=== PATIENT | male | born 1950 | race Caucasian/White ===

== ENCOUNTER 2017-05-15 15:27 | Inpatient (IN) | payer MEDICAID ==
[~2017-05-15] VITALS: Ht 177.8 cm; Wt 77.0 kg
[~2017-05-15 15:27] MED LIST: BACTRIM DS1 TAB PO; GEMFIBROZIL600 MG PO; GLIPIZIDE5 MG PO; LAC PO; LANTUS SOLOS100 U/M1; LEVOFLOXACIN500 M1 PO; METFORMIN1000 M1 PO; NORCO1 TA2 PO; XARELTO10 M1 PO
[2017-05-15 16:38] LABS: RED CELL DISTRIBUTION WIDTH 12.7 % (11.5-14.5)
[2017-05-15 16:46] LABS: BASOPHIL % 0.9 % (0-2); PLATELET COUNT 278 x10^3mcL (130-400)
[2017-05-15 16:57] LABS: ALKALINE PHOSPHATASE 170 U/L (46-116); ALT/SGPT 50 U/L (16-63); AST/SGOT 25 U/L (15-37); BILIRUBIN TOTAL 0.6 mg/dL (0.20-1.00); CALCIUM 8.4 mg/dL (8.5-10.1); CARBON DIOXIDE 30.3 mmol/L (21-32); CHLORIDE SERUM 91 mmol/L (98-107); CREATININE SERUM 0.8 mg/dL (0.7-1.3); GFR1 > 60 mL/min; SODIUM SERUM 128 mmol/L (136-145); TOTAL PROTEIN, SERUM 7.9 g/dL (6.4-8.2)
[2017-05-15 16:57] LABS: microscopic required? NO
[2017-05-15 17:03] LABS: UA SPECIFIC GRAVITY <=1.005 (1.005-1.035); urine erythrocyte NEGATIVE (NEGATIVE)
[2017-05-15 17:04] LABS: ALBUMIN 2.9 g/dL (3.4-5.0); GLUCOSE SERUM 467 mg/dL (74-106)
[2017-05-15 17:27] LABS: AMPHETAMINE QUAL UR NONE DETECTED (NEG <=1000)
[2017-05-15 17:56] LABS: CHOLESTEROL/HDL RATIO 3.8; MAGNESIUM 1.7 mg/dL (1.8-2.4); PHOSPHOROUS 3.7 mg/dL (2.5-4.9)
[2017-05-15 18:05] LABS: T3 TOTAL 1.1 ng/mL
[2017-05-15 18:09] LABS: FREE T4 1.37 ng/dL (0.76-1.46); FREE THYROXINE INDEX 3.8 ug/dL (1.4-4.5); T4(THYROXINE) 12.7 ug/dL (4.7-13.3)
[2017-05-15 19:59] VITALS: BP 141/82
[2017-05-15 20:02] VITALS: Ht 177.8 cm; Wt 77.0 kg
[2017-05-15 21:17] VITALS: BP 138/83
[2017-05-16 05:40] VITALS: BP 135/79
[2017-05-16 06:03] LABS: BASOPHIL % 1.1 % (0-2); PLATELET COUNT 240 x10^3mcL (130-400); RED CELL DISTRIBUTION WIDTH 12.8 % (11.5-14.5)
[2017-05-16 06:11] LABS: CALCIUM 8.1 mg/dL (8.5-10.1); CARBON DIOXIDE 26.4 mmol/L (21-32); CHLORIDE SERUM 101 mmol/L (98-107); CREATININE SERUM 0.7 mg/dL (0.7-1.3); GFR1 > 60 mL/min; GLUCOSE SERUM 121 mg/dL (74-106); MAGNESIUM 1.7 mg/dL (1.8-2.4); PHOSPHOROUS 3.4 mg/dL (2.5-4.9); POTASSIUM SERUM 3.5 mmol/L (3.5-5.1); SODIUM SERUM 134 mmol/L (136-145)
[2017-05-16 10:27] VITALS: BP 133/79
[2017-05-16 14:27] VITALS: BP 154/79
[2017-05-16 17:20] VITALS: BP 110/90
[2017-05-16 20:00] VITALS: BP 109/73
[2017-05-17 05:50] VITALS: BP 126/79
[2017-05-17 06:40] LABS: CALCIUM 8.1 mg/dL (8.5-10.1); CARBON DIOXIDE 24.9 mmol/L (21-32); CHLORIDE SERUM 102 mmol/L (98-107); CREATININE SERUM 0.7 mg/dL (0.7-1.3); GFR1 > 60 mL/min; GLUCOSE SERUM 196 mg/dL (74-106); MAGNESIUM 1.5 mg/dL (1.8-2.4); PHOSPHOROUS 2.9 mg/dL (2.5-4.9); POTASSIUM SERUM 3.5 mmol/L (3.5-5.1); SODIUM SERUM 134 mmol/L (136-145)
[2017-05-17 07:33] LABS: PLATELET COUNT 240 x10^3mcL (130-400)
[2017-05-17 09:50] VITALS: BP 133/76
[2017-05-17 10:06] LABS: BAND NEUTROPHIL 4 % (0-10); MONOCYTE 6 % (0-7); SEGMENTED NEUTROPHILS 71 % (37-75)
[2017-05-17 10:07] LABS: PLATELET MORPHOLOGY FEW LARGE PLATELETS; rbc morphology (normal/abnorm) NORMAL (NORMAL)
[2017-05-17 12:40] VITALS: BP 120/64
[2017-05-17 17:41] VITALS: BP 124/63
[2017-05-17 20:24] VITALS: BP 132/78
[2017-05-18 05:45] VITALS: BP 130/85
[2017-05-18 06:30] LABS: BASOPHIL % 0.3 % (0-2); PLATELET COUNT 219 x10^3mcL (130-400); RED CELL DISTRIBUTION WIDTH 12.2 % (11.5-14.5)
[2017-05-18 06:54] LABS: CARBON DIOXIDE 25.9 mmol/L (21-32); CHLORIDE SERUM 101 mmol/L (98-107); CREATININE SERUM 0.6 mg/dL (0.7-1.3); GFR1 > 60 mL/min; GLUCOSE SERUM 99 mg/dL (74-106); MAGNESIUM 1.5 mg/dL (1.8-2.4); POTASSIUM SERUM 3.5 mmol/L (3.5-5.1); SODIUM SERUM 134 mmol/L (136-145)
[2017-05-18 10:43] VITALS: BP 129/74
== END 2017-05-18 11:23 | disposition left against medical advice (07) | DRG 197 ==
LOC: ED 15:27 → DU 17:17 → MU 05-17 10:15
PROVIDERS: Emergency Medicine; ADMIT Family Medicine
DX: E11.51 Type 2 diabetes mellitus with diabetic peripheral angiopathy without gangrene (principal); E44.0 Moderate protein-calorie malnutrition; D68.69 Other thrombophilia; E11.65 Type 2 diabetes mellitus with hyperglycemia; E87.8 Other disorders of electrolyte and fluid balance, not elsewhere classified; E87.1 Hypo-osmolality and hyponatremia; E83.42 Hypomagnesemia; I10 Essential (primary) hypertension; S30.0XXA Contusion of lower back and pelvis, initial encounter; S00.83XA Contusion of other part of head, initial encounter; Y04.0XXA Assault by unarmed brawl or fight, initial encounter; D64.9 Anemia, unspecified; E78.5 Hyperlipidemia, unspecified; B18.2 Chronic viral hepatitis C; S81.011A Laceration without foreign body, right knee, initial encounter; Y93.89 Activity, other specified; Y92.89 Other specified places as the place of occurrence of the external cause; Z59.0 Homelessness; Z79.4 Long term (current) use of insulin; Z68.24 Body mass index [BMI] 24.0-24.9, adult; F17.210 Nicotine dependence, cigarettes, uncomplicated; Z79.84 Long term (current) use of oral hypoglycemic drugs; Z91.14 Patient's other noncompliance with medication regimen; Z22.322 Carrier or suspected carrier of Methicillin resistant Staphylococcus aureus
CPT/HCPCS: 82962; 83880; 84439; 94150; J1815; J1885; J3475; J7030; Q0092